=== PATIENT | male | born 1950 | race African-American/Black ===

== ENCOUNTER 2019-10-25 06:52 | Emergency (ER) | payer OTHER ==
[2019-10-25 07:25] VITALS: TEMP 98.2; BMI 24.4
[2019-10-25] MEDS ORDERED: METOCLOPRAMIDE HCL INJECTION 10 MG/2 ML VIAL IVPB ONE (08:21)
[2019-10-25] MEDS ORDERED: METOCLOPRAMIDE HCL INJECTION 10 MG/2 ML VIAL ONE (08:22)
[2019-10-25 09:01] LABS: ALBUMIN 3.7 g/dl (3.4-5.0); BILIRUBIN,TOTAL 0.3 mg/dL (0.2-1); BLOOD UREA NITROGEN 11.1 mg/dL (7-18); CALCIUM 9.8 mg/dL (8.5-10.1); CREATININE 1.1 mg/dL (0.55-1.3); MAGNESIUM 1.8 mg/dL (1.8-2.4); POTASSIUM 3.3 mmol/L (3.5-5.1); TOT PROT 6.7 g/dl (6.4-8.2)
[2019-10-25 09:03] LABS: BASO % 0.8 % (0-2.0); EOS % 0.7 % (0-4.5); HEMATOCRIT 45.4 % (35.4-49); HEMOGLOBIN 15.9 GM/dL (11.7-16.9); LYMPH % 18.5 % (8-40); MCH 37.9 pg (25.7-33.7); MEAN CELL VOLUME 108.1 fl (80-96); MEAN PLT VOLUME 8.1 fl (7.5-11.1); MONO % 11.3 % (3.8-10.2); NEUT % 68.7 % (42.8-82.8); PLATELET COUNT 258 K/MM3 (134-434); RDW 13.9 % (11.9-15.9); WHITE BLOOD COUNT 6.7 K/mm3 (4.0-10.0)
--- NOTE | 2019-10-25 09:30 | EKG ---
Test Reason : Blood Pressure : / mmHG Vent. Rate : 068 BPM Atrial Rate : 068 BPM P-R Int : 166 ms QRS Dur : 114 ms QT Int : 410 ms P-R-T Axes : 071 044 072 degrees QTc Int : 435 ms NORMAL SINUS RHYTHM LEFT ATRIAL ENLARGEMENT NONSPECIFIC ST ABNORMALITY BORDERLINE ECG Confirmed by MD VERNA, IQRA ([id number]) on 10/25/2019 9:29:52 AM Referred By: Confirmed By:IQRA GILLESPIE MD
[2019-10-25 09:38] LABS: ANISOCYTOSIS 1+; MACROCYTOSIS 1+; PLATELET ESTIMATE NORMAL
--- NOTE | 2019-10-25 09:39 | PDOC ---
Documentation entered by Tanner Kennedy SCRIBE, acting as scribe for Mitchel Calabrese MD. Mitchel Calabrese MD: This documentation has been prepared by the Violet lorenzo inTanner SCRIBE, under my direction and personally reviewed by me in its entirety. I confirm that the documentation accurately reflects all work, treatment, procedures, and medical decision making performed by me. History of Present Illness - General Chief Complaint: Chest Pain Stated Complaint: CHEST PAIN Time Seen by Provider: 10/25/19 07:28 History Source: Patient Exam Limitations: No Limitations - History of Present Illness Initial Comments: 10/25/19 08:08 The patient is a 69y/o M with a PMH of HIV who presents to the ED for 6 months of hiccups. Pt states he has been seen at multiple hospitals by multiple doctors for his symptoms with no findings/ diagnosis. Pt states chest pain associates with hiccups. He also endorses he cannot see out of his left eye since he had his cataract surgery but has an appointment to evaluate. The patient denies headache, fever, chills and/or any GI symptoms. Denies any symptoms. Denies any other symptoms. Allergies: NKDA Surgical Hx: B/L cataracts Social Hx: Patients reports he smokes cigarettes, occasionally smokes marijuana, and consumes alcohol (last drink was this morning) Past History - Medical History Allergies/Adverse Reactions: Allergies Allergy/AdvReac Type Severity Reaction Status Date / Time No Known Allergies Allergy Verified 10/25/19 07:19 Home Medications: Ambulatory Orders NK [No Known Home Medication] 10/25/19 COPD: No - Immunization History Immunization Up to Date: Yes - Psycho-Social/Smoking History Smoking History: Current every day smoker Have you smoked in the past 12 months: Yes Number of Cigarettes Smoked Daily: 10 Information on smoking cessation initiated: Yes - Substance Abuse Hx (Audit-C & DAST Scrn) How often the patient has a drink containing alcohol: 4 0r more times/wk Number of drinks the patient has on a typical day: 5 or 6 How often the patient has six or more drinks on one occasion: Daily or almost daily Score: In Men: 4 or > Positive; In Women: 3 or > Positive: 10 Screen Result (Pos requires Nsg. Audit-10AR): Positive In the last yr the pt used illegal drug/Rx for NonMed reason: No Score: Yes response is considered Positive: 0 Screen Result (Positive result requires Nsg. DAST-10): Negative Review of Systems - Review of Systems Able to Perform ROS?: Yes Comments:: 10/25/19 08:09 CONSTITUTIONAL: No fever, no chills, no fatigue EYES: No visual changes ENT: No ear pain, no sore throat CARDIOVASCULAR: + hiccups (6 months), associated with chest pain. no palpitations RESPIRATORY: No cough, no SOB GI: No abdominal pain, no nausea, no vomiting, no constipation, no diarrhea GENITOURINARY: No dysuria, no frequency, no hematuria MUSKULOSKELETAL: No backpain, no joint pain, no myalgias SKIN: No rash NEURO: No headache All Other Systems: Reviewed and Negative *Physical Exam - Vital Signs Last Vital Signs Temp Pulse Resp BP Pulse Ox 98.2 F 78 18 117/73 96 10/25/19 07:09 10/25/19 07:09 10/25/19 07:09 10/25/19 07:09 10/25/19 07:09 - Physical Exam 10/25/19 08:24 CONSTITUTIONAL: Well-appearing; well-nourished; in no apparent distress HEAD: Normocephalic; atraumatic EYES: +ptosis, Left eye injected,cornea cloudy, Left pupil poorly reactive to light. ENMT: +continuous hiccups External appears normal; normal oropharynx NECK: Supple; non-tender; no cervical lymphadenopathy CARD: Normal S1, S2; no murmurs, rubs, or gallops RESP: Normal chest excursion with respiration; breath sounds clear and equal bilaterally; no wheezes, rhonchi, or rales ABD: Soft, non-distended; non-tender; no palpable organomegaly, no palpable hernias EXT: Normal ROM in all four extremities; non-tender to palpation; distal pulses intact SKIN: +extensive clubbing. Warm, dry NEURO: No focal neurological deficiencies. Heart Score/ECG Review - ECG Impressions Normal ECG: Yes Comment:: 10/25/19 08:25 EKG performed at 7:30AM demonstrates rate of 68 bmp. No T wave inversions, no ST elevations. ED Treatment Course - LABORATORY CBC & Chemistry Diagram: 10/25/19 07:50 10/25/19 07:50 Medical Decision Making - Medical Decision Making 10/25/19 09:38, Patient is a 69-year-old male with history of HIV on Diehl, CD4 count unknown, viral load undetectable; presents with intractable hiccups for the past 6 months for which he has been evaluated by numerous physicians. Patient's chest pain is a direct result of frequent hiccups and he denies chest pain unrelated to the current presentation. In the ER, patient is awake and alert, EKG is within normal limit. Chest x-ray reveals flattened hemidiaphragms but no evidence of metastases. CT of head shows no evidence of intracranial masses. Patient received IV Reglan with complete resolution of her symptoms. Will discharge with outpatient follow-up. Discharge - Discharge Information Problems reviewed: Yes Clinical Impression/Diagnosis: Chronic hiccoughs, Atypical chest pain Condition: Stable Disposition: HOME - Follow up/Referral Referrals: Sam Kelly MD [Primary Care Provider] - - Patient Discharge Instructions Patient Printed Discharge Instructions: DI for Atypical Chest Pain, DI for Hiccups - Post Discharge Activity
[2019-10-25 10:14] VITALS: BP 95/70; PULSE 62
== END 2019-10-25 10:10 | disposition home or self-care (01) ==
LOC: JER 06:52
PROC: 3E033NZ Introduction of Analgesics, Hypnotics, Sedatives into Peripheral Vein, Percutaneous Approach (ICD-10-PCS; principal; 2019-10-25)
DX: R07.89 Other chest pain (principal); R06.6 Hiccough
CPT/HCPCS: 36415; 70450-TC; 71046-TC-FY; 80053; 83735; 85025; 93005; 93010; 96374; 99285-25